=== PATIENT | male | born 1970 | race Caucasian/White ===

== ENCOUNTER 2016-09-27 19:16 | Emergency (ER) | payer BC, OTHER ==
[~2016-09-27] VITALS: Ht 182.9 cm; Wt 87.0 kg
[2016-09-27 19:23] VITALS: TEMP 36.8; Ht 182.9 cm; Wt 87.0 kg
[2016-09-27] MEDS ORDERED: LORA5TAB3 PO (19:32)
[2016-09-27] MEDS ORDERED: PRAV20TA PO (19:32)
[2016-09-27] MEDS ORDERED: ACYC1CAP8 PO (19:32)
[2016-09-27 20:30] LABS: URINE APPEARANCE CLOUDY (CLEAR); URINE BILIRUBIN NEG (NEG); URINE COLOR YELLOW; URINE NITRITE NEG (NEG); URINE SPECIFIC GRAVITY 1.015 (1.000-1.030); UROBILINOGEN NEG (NEG); ZZUR CULT IF INDIC CLEAN CATCH NO
[2016-09-27 20:35] LABS: MANUAL MICROSCOPIC REQUIRED? NO; REVIEW REQ? NO
--- NOTE | 2016-09-27 20:35 | DIAGNOSTIC IMAGING REPORT ---
CHEST ONE VIEW PORTABLE CLINICAL HISTORY: Weakness COMPARISON STUDY: No previous studies for comparison. FINDINGS: A ventriculoperitoneal shunt catheter is noted. Cardiac size is normal. Mediastinal contours are normal. There is no evidence of pulmonary edema. No consolidation is identified. There is no pneumothorax or pleural effusion. IMPRESSION: No acute cardiopulmonary findings. Electronically signed by: Jacek Banks M.D. 09/27/2016 8:34 PM Dictated Date/Time: 09/27/2016 8:34 PM
[2016-09-27 21:00] LABS: BASO % 0.5 %; BASO ABS # 0.03 K/uL (0-0.2); COMPLETE YES; EOS % 2.1 %; HEMATOCRIT 39.6 % (42-52); IG% 0.2 %; LYMPH % 38.8 %; LYMPH ABS # 2.17 K/uL (1.2-3.4); MEAN CELL VOLUME 89.8 fL (80-100); MEAN CORPUSCULAR HEMOGLOBIN 31.1 pg (25-34); MEAN CORPUSCULAR HGB CONC 34.6 g/dl (32-36); MEAN PLATELET VOLUME 9.6 fL (7.4-10.4); MONO % 11.6 %; NEUT % 46.8 %; PLATELET COUNT 268 K/uL (130-400); RED BLOOD COUNT 4.41 M/uL (4.7-6.1); WHITE BLOOD COUNT 5.59 K/uL (4.8-10.8)
[2016-09-27 21:09] LABS: BUN/CREATININE RATIO 14.6 (10-20); CALCIUM 8.3 mg/dl (8.5-10.1); CREATININE 0.8 mg/dl (0.60-1.40); POTASSIUM 3.8 mmol/L (3.5-5.1)
--- NOTE | 2016-09-27 21:14 | EMERGENCY ROOM VISIT NOTE ---
History Report prepared by Kirby: [facility] Under the Supervision of: Dr. Esteban Valverde D.O. First contact with patient: 20:57 Chief Complaint: WEAKNESS Stated Complaint: OFF BALANCE,WEAKNESS Nursing Triage Summary: c/o just feeling " off today." hx of hydrocephalus with shunt placement in 2000. denies celis. pt ambulatory in room without difficulty. just moved here from [place]. History of Present Illness The patient is a 46 year old male who presents to the Emergency Room with complaints of persistent illness that started today. The patient notes that he was walking up the stairs when he had to put his hands down to help him the rest of the way up. He also complains of left sided weakness. The patient notes that he has a CITY DRIVER shunt from 2000. He gets it checked regularly and has no history of problems with it. The patient presented to his PCP and a neurosurgeon a few weeks ago because he was having ringing in his ears and neck stiffness. The patient had his stunt checked and they said it looked fine at the time. He denies fevers or any changes in his speech at this time. Source of History: patient Onset: today Position: other (global) Timing: other (persistent) Associated Symptoms: + neck pain (stiffness), + weakness (left-sided ), No fevers Note: Other associated symptoms: difficulty walking up stairs, ringing in his ears Denies: changes in his speech Review of Systems See HPI for pertinent positives & negatives. A total of 10 systems reviewed and were otherwise negative. Past Medical & Surgical Surgical Problems: (1) S/P CITY DRIVER shunt Family History No pertinent family history Social History Smoking Status: Current Every Day Smoker Marital Status: Housing Status: lives with family Occupation Status: employed Current/Historical Medications Scheduled Acyclovir (Zovirax), 200 MG PO DAILY Loratadine & Pseudoephedrine (Claritin-D 12 Hour), 1 TAB PO BID Pravastatin (Pravachol ), 20 MG PO DAILY Allergies Coded Allergies: No Known Allergies (Unverified , 09/27/16) Physical Exam Vital Signs Date Time Temp Pulse Resp B/P Pulse Ox O2 Delivery O2 Flow Rate FiO2 09/27/16 22:49 78 18 146/98 98 09/27/16 22:47 78 18 146/98 98 Room Air 09/27/16 21:55 66 09/27/16 21:53 67 18 130/98 99 Room Air 09/27/16 21:34 72 18 125/81 98 Room Air 09/27/16 20:34 74 18 118/72 96 Room Air 09/27/16 19:23 36.8 92 18 141/87 97 Room Air Physical Exam GENERAL: Patient is awake alert non-anxious appearing and comfortable. EYES: The conjunctivae are clear. The pupils are round and reactive. EARS, NOSE, MOUTH AND THROAT: The nose is without any evidence of any deformity. Mucous membranes are moist tongue is midline NECK: The neck is nontender and supple. RESPIRATORY: Normal respiratory effort is noted there is no evidence of wheezing rhonchi or rales CARDIOVASCULAR: Regular rate and rhythm noted there no murmurs rubs or gallops normal S1 normal S2 GASTROINTESTINAL: The abdomen is soft. Bowel sounds are present in all quadrants. Abdomen is nontender MUSCULOSKELETAL/EXTREMITIES: There is no evidence of gross deformity full range of motion is noted in the hips and shoulders SKIN: There is no obvious evidence of any rash. There are no petechiae, pallor or cyanosis noted. NEUROLOGIC: Patient is awake alert and oriented x3. speech was pressured but understandable. There was a slight left facial droop with forehead sparing noted. Compliance Monitor strength was asymmetric with right trim mechanic stronger than left. Both lower extremities were symmetric. Medical Decision & Procedures ER Provider Diagnostic Interpretation: Radiology results as stated below per my review and radiologist interpretation: CHEST ONE VIEW PORTABLE CLINICAL HISTORY: Weakness COMPARISON STUDY: No previous studies for comparison. FINDINGS: A ventriculoperitoneal shunt catheter is noted. Cardiac size is normal. Mediastinal contours are normal. There is no evidence of pulmonary edema. No consolidation is identified. There is no pneumothorax or pleural effusion. IMPRESSION: No acute cardiopulmonary findings. Electronically signed by: Jacek Banks M.D. 09/27/2016 8:34 PM Dictated Date/Time: 09/27/2016 8:[address] OF THE HEAD WITHOUT CONTRAST CLINICAL HISTORY: Left-sided weakness. Mild headache. COMPARISON STUDY: Head CT August 14, 2016. CT DOSE: 884.08 mGy.cm TECHNIQUE: Helical axial images of the head were obtained without IV contrast. Automated exposure control was utilized for the study. FINDINGS: There has been interval development of large intermediate attenuation bilateral subdural hematomas since exam of August 14, 2016. There are areas of increased attenuation within the hematomas consistent with acute hemorrhage. The right subdural hematoma measures 2.7 cm in thickness while the left measures 2.2 cm. Note is made of 5 mm of leftward midline shift. A right posterior parietal approach ventriculostomy catheter is in place. The ventricles have markedly decreased in size since exam of August 14, 2016 and are now slit-like. The basilar cisterns are patent. There is no evidence of uncal herniation at this time. There are no CT findings to suggest acute dural sinus thrombosis or acute territorial infarct. There is no calvarial fracture. There is mild mucosal thickening of the sinuses. A small amount of fluid within the left mastoid air cells is noted. IMPRESSION: 1. Interval development of large mixed attenuation bilateral subdural hematomas since CT of August 14, 2016. Significant associated mass effect with sulcal effacement, 5 mm of leftward midline shift and compression of the lateral ventricles. Areas of increased attenuation within the hematomas represent acute hemorrhage. Urgent neurosurgical consultation is recommended. These hematomas could be posttraumatic or related to overshunting. Discussed with Dr. Valverde at time of dictation. 2. Marked interval decrease in size of the lateral ventricles since exam of August 14, 2016, now slit-like, with right posterior parietal ventriculostomy catheter in place. Electronically signed by: Jacek Banks M.D. 09/27/2016 10:03 PM Dictated Date/Time: 09/27/2016 9:52 PM Laboratory Results 09/27/16 20:30 Red Blood Count 4.41, Mean Corpuscular Volume 89.8, Mean Corpuscular Hemoglobin 31.1, Mean Corpuscular Hemoglobin Concent 34.6, Mean Platelet Volume 9.6, Neutrophils (%) (Auto) 46.8, Lymphocytes (%) (Auto) 38.8, Monocytes (%) (Auto) 11.6, Eosinophils (%) (Auto) 2.1, Basophils (%) (Auto) 0.5, Neutrophils # (Auto ) 2.61, Lymphocytes # (Auto) 2.17, Monocytes # (Auto) 0.65, Eosinophils # (Auto ) 0.12, Basophils # (Auto) 0.03 09/27/16 20:30 Test 09/27/16 19:30 09/27/16 20:30 Urine Color YELLOW Urine Appearance CLOUDY (CLEAR) Urine pH 7.0 (4.5-7.5) Urine Specific [place] 1.015 (1.000-1.030) Urine Protein NEG (NEG) Urine Glucose (UA) NEG (NEG) Urine Ketones NEG (NEG) Urine Occult Blood NEG (NEG) Urine Nitrite NEG (NEG) Urine Bilirubin NEG (NEG) Urine Urobilinogen NEG (NEG) Urine Leukocyte Esterase NEG (NEG) Urine WBC (Auto) 1-5 /hpf (0-5) Urine RBC (Auto) 0-4 /hpf (0-4) Urine Hyaline Casts (Auto) 1-5 /lpf (0-5) Urine Epithelial Cells (Auto) 5-10 /lpf (0-5) Urine Bacteria (Auto) NEG (NEG) White Blood Count 5.59 K/uL (4.8-10.8) Red Blood Count 4.41 M/uL (4.7-6.1) Hemoglobin 13.7 g/dL (14.0-18.0) Hematocrit 39.6 % (42-52) Mean Corpuscular Volume 89.8 fL (80-100) Mean Corpuscular Hemoglobin 31.1 pg (25-34) Mean Corpuscular Hemoglobin Concent 34.6 g/dl (32-36) Platelet Count 268 K/uL (130-400) Mean Platelet Volume 9.6 fL (7.4-10.4) Neutrophils (%) (Auto) 46.8 % Lymphocytes (%) (Auto) 38.8 % Monocytes (%) (Auto) 11.6 % Eosinophils (%) (Auto) 2.1 % Basophils (%) (Auto) 0.5 % Neutrophils # (Auto) 2.61 K/uL (1.4-6.5) Lymphocytes # (Auto) 2.17 K/uL (1.2-3.4) Monocytes # (Auto) 0.65 K/uL (0.11-0.59) Eosinophils # (Auto) 0.12 K/uL (0-0.5) Basophils # (Auto) 0.03 K/uL (0-0.2) RDW Standard Deviation 42.7 fL (36.4-46.3) RDW Coefficient of Variation 13.0 % (11.5-14.5) Immature Granulocyte % (Auto) 0.2 % Immature Granulocyte # (Auto) 0.01 K/uL (0.00-0.02) Anion Gap 4.0 mmol/L (3-11) Est Creatinine Clear Calc Drug Dose 126.7 ml/min Estimated GFR () 124.2 Estimated GFR (Non- 107.1 BUN/Creatinine Ratio 14.6 (10-20) Calcium Level 8.3 mg/dl (8.5-10.1) Total Bilirubin 0.3 mg/dl (0.2-1) Aspartate Amino Transf (AST/SGOT) 22 U/L (15-37) Alanine Aminotransferase (ALT/SGPT) 38 U/L (12-78) Alkaline Phosphatase 67 U/L (45-117) Total Creatine Kinase 117 U/L (39-308) Creatine Kinase MB 1.2 ng/ml (0.5-3.6) Creatine Kinase MB Ratio 1.0 (0-3.0) Troponin I < 0.015 ng/ml (0-0.045) Total Protein 6.2 gm/dl (6.4-8.2) Albumin 3.7 gm/dl (3.4-5.0) Globulin 2.5 gm/dl (2.5-4.0) Albumin/Globulin Ratio 1.5 (0.9-2) Thyroid Stimulating Hormone (TSH) 1.780 uIu/ml (0.300-4.500) Laboratory results per my review. ECG Indication: other Rate (beats per minute): 75 Rhythm: normal sinus Findings: no ectopy, other (no ST segment abnormality) ED Course 2103: The patient was evaluated in room C9. A complete history and physical examination were performed. 2129: At this time, I reevaluated the patient and discussed his test results with him. 2201: At this time, I discussed the patient's case with Dr. Nichols - Neurosurgery [facility] and he accepted the patient for transfer down to [facility]. Medical Decision Prior records/ancillary studies reviewed and summarized above. Nursing notes reviewed. Differential diagnosis: Etiologies such as metabolic, infection, hypo/hyperglycemia, electrolyte abnormalities, cardiac sources, intracerebral event, toxicologic, neurologic, as well as others were entertained. The patient is a 46-year-old male who has a history of a CITY DRIVER shunt which was placed many years ago. The patient has had a recent fall appointment for this CITY DRIVER shunt. He's been having vague symptoms which included weakness mild speech problems as well as weakness in his left upper extremity and mild headache. On physical exam the patient had some degree of dysarthria. He also had a left facial droop as well as weakness his left trim mechanic. The patient's CAT scan showed signs of bilateral subdural hematomas which looked mostly chronic with some acute bleeding noted on the left subdural hematoma. I discussed the patient's laboratory and radiographic studies with him. I also discussed his case with the on-call neurosurgical service at [facility]. They've agreed to accept the patient in transfer for further management and disposition. The patient was reevaluated multiple times. His blood pressure remained stable in the emergency department. Consults Time Called: [phone] Consulting Physician: Dr. Nichols - Neurosurgery [facility] Returned Call: [phone] At this time, I discussed the patient's case with Dr. Nichols and he accepted the patient for transfer down to [facility]. Impression Primary Impression: Acute on chronic intracranial subdural hematoma Additional Impression: Chronic subdural hematoma Scribe Attestation The scribe's documentation has been prepared under my direction and personally reviewed by me in its entirety. I confirm that the note above accurately reflects all work, treatment, procedures, and medical decision making performed by me. Departure Information Dispostion Transfer Acute Care Facility ([facility]) Referrals Randolph Tam MD (PCP) Problem Qualifiers
[2016-09-27 21:19] LABS: ALB/GLOB RATIO 1.5 (0.9-2); THYROID STIMULATING HORMONE 1.78 uIu/ml (0.300-4.500)
--- NOTE | 2016-09-27 22:05 | DIAGNOSTIC IMAGING REPORT ---
CT OF THE HEAD WITHOUT CONTRAST CLINICAL HISTORY: Left-sided weakness. Mild headache. COMPARISON STUDY: Head CT August 14, 2016. CT DOSE: 884.08 mGy.cm TECHNIQUE: Helical axial images of the head were obtained without IV contrast. Automated exposure control was utilized for the study. FINDINGS: There has been interval development of large intermediate attenuation bilateral subdural hematomas since exam of August 14, 2016. There are areas of increased attenuation within the hematomas consistent with acute hemorrhage. The right subdural hematoma measures 2.7 cm in thickness while the left measures 2.2 cm. Note is made of 5 mm of leftward midline shift. A right posterior parietal approach ventriculostomy catheter is in place. The ventricles have markedly decreased in size since exam of August 14, 2016 and are now slit-like. The basilar cisterns are patent. There is no evidence of uncal herniation at this time. There are no CT findings to suggest acute dural sinus thrombosis or acute territorial infarct. There is no calvarial fracture. There is mild mucosal thickening of the sinuses. A small amount of fluid within the left mastoid air cells is noted. IMPRESSION: 1. Interval development of large mixed attenuation bilateral subdural hematomas since CT of August 14, 2016. Significant associated mass effect with sulcal effacement, 5 mm of leftward midline shift and compression of the lateral ventricles. Areas of increased attenuation within the hematomas represent acute hemorrhage. Urgent neurosurgical consultation is recommended. These hematomas could be posttraumatic or related to overshunting. Discussed with Dr. Valverde at time of dictation. 2. Marked interval decrease in size of the lateral ventricles since exam of August 14, 2016, now slit-like, with right posterior parietal ventriculostomy catheter in place. Electronically signed by: Jacek Banks M.D. 09/27/2016 10:03 PM Dictated Date/Time: 09/27/2016 9:52 PM
[2016-09-27 22:49] VITALS: BP 146/98; PULSE 78; O2SAT 98
== END 2016-09-27 23:00 | disposition short-term general hospital (02) ==
LOC: C.EDB 19:20 → C.EDC 23:00
DX: I62.00 Nontraumatic subdural hemorrhage, unspecified (principal); Z98.890 Other specified postprocedural states

== ENCOUNTER 2017-12-03 16:02 | Emergency (ER) | payer OTHER ==
[~2017-12-03] VITALS: Ht 182.9 cm; Wt 86.8 kg
[~2017-12-03 16:02] MED LIST changes: -LORA-749 PO; -MULT-506 PO; -OMEG10007 PO; -PRAV20TA PO; -ZVR400 PO
[2017-12-03 16:07] VITALS: TEMP 36.5; Ht 182.9 cm; Wt 86.8 kg
--- NOTE | 2017-12-03 17:22 | EMERGENCY ROOM VISIT NOTE ---
History Report prepared by Kirby: Ollie Mahan Under the Supervision of: Lamont IglesiasO. First contact with patient: 16:25 Chief Complaint: HEADACHE Stated Complaint: REF BY History of Present Illness The patient is a 47 year old male who presents to the Emergency Room with evaluation for an episodic abnormal head CT scan RN HEMODIALYSIS CHARGE. The patient has a history of hydrocephalus in 2000. He notes that he had two brain surgeries at [facility] in 2016 due to bilateral subdural hematomas after another head injury. He has a history of ventriculoperitoneal shunt. He reports that he had a follow up CT scan this morning and then was advised to come to the ED for further evaluation. He was told that his ventricles are enlarged. He states that he is experiencing slight balance issues, mild nausea, frequent urination, and mild memory loss. He states these symptoms are similar to previous symptoms he experienced related to his hydrocephalus. Source of History: patient Onset: RN HEMODIALYSIS CHARGE Position: head Quality: other (abnormal CT scan) Timing: other (episodic ) Associated Symptoms: + nausea, + urinary symptoms (frequent urination) Note: Notes balance issues and memory loss. Review of Systems See HPI for pertinent positives & negatives. A total of 10 systems reviewed and were otherwise negative. Past Medical & Surgical Surgical Problems: (1) S/P BARK TANNER shunt Family History No pertinent family history Social History Smoking Status: Current Every Day Smoker Marital Status: Housing Status: lives with family Occupation Status: employed Current/Historical Medications Scheduled Acyclovir (Acyclovir), 400 MG PO DAILY Fish Oil ([place]-3), 1 CAP PO DAILY Loratadine & Pseudoephedrine (Claritin-D 24 Hour), 1 TAB PO DAILY Multivitamin (Multivitamin), 1 TAB PO DAILY Pravastatin (Pravachol ), 20 MG PO HS Allergies Coded Allergies: No Known Allergies (Unverified , 09/27/16) Physical Exam Vital Signs Date Time Temp Pulse Resp B/P (MAP) Pulse Ox O2 Delivery O2 Flow Rate FiO2 12/03/17 17:31 73 18 110/78 98 Room Air 12/03/17 16:07 36.5 77 16 137/85 97 Room Air Physical Exam VITAL SIGNS: were reviewed as above. GENERAL:Non-toxic in appearance. SKIN: Warm dry and pink. HEAD: Normocephalic and atraumatic. OROPHARYNX: Is clear and moist NECK: Supple without lymphadenopathy or meningismus. LUNGS: clear. HEART: Regular rate and rhythm. ABDOMEN: Soft and nontender. EXTREMITIES: Warm and well perfused. NEUROLOGICALLY: Awake alert and oriented without focal deficit. Cranial nerves 2 -12 are intact. There is no pronator drift. Cerebellar testing is within normal limits. There is no nystagmus. There is no facial droop. Speech is clear. Vision is grossly normal. MUSCULOSKELETAL: Good muscle tone. No evidence of trauma. Medical Decision & Procedures ED Course 163: Previous medical records were reviewed. The patient was evaluated in room A12B. A complete history and physical examination was performed. 1655: I spoke with Dr. Alcantara [facility] neurosurgeon. We discussed the patient's case. The patient can follow up with Dr. Moralez, hydrocephalus specialist. 1715: I reassessed the patient at this time. I discussed the results and treatment plan with the patient. I answered all pertaining questions that he had. He expressed understanding and verbalized agreement. The patient will be discharged home. Medical Decision Differential includes: Acute intracranial bleed, trauma, meningitis, encephalitis, increased intracranial pressure, mass or mass effect, facial or dental infection, temporal arteritis, CVA, TIA, acute hypertensive emergency, sinusitis, and carbon monoxide exposure. This is a 47-year-old male who presents to the ED with a chief complaint of hydrocephalus. The patient had an outpatient routine CT scan of the brain today that revealed hydrocephalus. It was significantly changed from a previous CT scan that was done here when the patient had subdural hematomas. The patient reports that he has had history of hydrocephalus since 2000. The shunt was ligated after having the subdural hematomas. The patient's works at [employer] and he has at an insurance. He can no longer follow up with [facility] [facility]. The patient was provided with contact information for the hydrocephalus specialist at [facility], Dr. Moralez. I did speak with Dr. Alcantara neurosurgeon from [facility]. Based on the fact that the patient is asymptomatic and has not had any sudden changes in his symptoms, outpatient follow-up was recommended. Medication Reconcilliation Current Medication List: was personally reviewed by me Blood Pressure Screening Patient's blood pressure: Elevated blood pressure Blood pressure disposition: Elevated BP felt to be situational Consults Time Called: 1650 Consulting Physician: Jazmin Colladohey neurosurgeon Returned Call: [phone] Alcantara [place] [facility] neurosurgeon. We discussed the patient's case. The patient can follow up with Dr. Moralez, hydrocephalus specialist. Impression Primary Impression: Hydrocephalus Scribe Attestation The scribe's documentation has been prepared under my direction and personally reviewed by me in its entirety. I confirm that the note above accurately reflects all work, treatment, procedures, and medical decision making performed by me. Departure Information Dispostion Home / Self-Care Referrals Randolph Tam MD (PCP) Forms HOME CARE DOCUMENTATION FORM, IMPORTANT VISIT INFORMATION Patient Instructions My [facility] Additional Instructions Take the CD were given today to your appointment at [facility] neurosurgery clinic with Dr. Moralez. Call Wednesday for appointment. [place] [facility] Neuro[facility] office: [phone] See if you can obtain the MRI on CD from [facility] from December. Return for any significant worsening or sudden changes.
[2017-12-03] MEDS ORDERED: LORA-749 PO (17:24)
[2017-12-03] MEDS ORDERED: OMEG10007 PO (17:24)
[2017-12-03] MEDS ORDERED: ZVR400 PO (17:24)
[2017-12-03] MEDS ORDERED: MULT-506 PO (17:24)
[2017-12-03 17:31] VITALS: BP 110/78; PULSE 73; O2SAT 98
[2017-12-03] MEDS ORDERED: PRAV20TA PO (19:32)
== END 2017-12-03 17:33 | disposition home or self-care (01) ==
LOC: C.EDB 16:03 → C.EDA 17:33
DX: G91.9 Hydrocephalus, unspecified (principal); R03.0 Elevated blood-pressure reading, without diagnosis of hypertension; F17.200 Nicotine dependence, unspecified, uncomplicated; Z87.820 Personal history of traumatic brain injury; Z98.2 Presence of cerebrospinal fluid drainage device; Z79.899 Other long term (current) drug therapy

== ENCOUNTER → 2017-12-03 | Outpatient (CLI) | payer OTHER ==
[~2017-12-03] MED LIST: ACYC-57 PO; LORA-749 PO; LORA5TAB3 PO; MULT-506 PO; OMEG10007 PO; PRAV20TA PO; ZVR400 PO
--- NOTE | 2017-12-03 14:59 | DIAGNOSTIC IMAGING REPORT ---
CT SCAN OF THE BRAIN WITHOUT IV CONTRAST CLINICAL HISTORY: Headache. COMPARISON STUDY: CT of the brain dated 09/27/2016. TECHNIQUE: Unenhanced axial CT scan of the brain is performed from the vertex to the skull base. A dose lowering technique was utilized adhering to the principles of ALARA. CT DOSE: 729.78 mGycm FINDINGS: Brain parenchyma: There is a right posterior parietal approach ventriculostomy catheter. The tip of the catheter terminates in the frontal horn of the right lateral ventricle. There is dilatation of the lateral ventricles and the third ventricle, which is significantly increased from 09/27/2016. The biventricular caliber measures up to 5.6 cm. The cortical sulci are normal in configuration. There is no hemorrhage, mass effect, or evidence of acute territorial ischemia by CT criteria. Cantor-white matter is preserved. There is no transependymal flow of CSF. No extra-axial fluid collection is seen. Ventricles, sulci, cisterns: See above. Intracranial vasculature: The visualized intracranial vasculature at the skull base is normal in appearance. Calvarium: There is a right posterior parietal rich hole, as well as evidence of bilateral craniotomy. Sinuses and mastoids: The visualized paranasal sinuses are clear. The mastoid air cells are well pneumatized. Orbits: The bony orbits are grossly intact. IMPRESSION: 1. There is no hemorrhage, mass effect, or evidence of acute territorial ischemia by CT criteria. 2. There is a right parietal approach ventriculostomy catheter as above. There is enlargement of the ventricles, which has significantly increased from 09/27/2016 and suggests shunt dysfunction. Electronically signed by: Rubén Montaño M.D. 12/03/2017 2:58 PM Dictated Date/Time: 12/03/2017 2:55 PM
== END | disposition home or self-care (01) ==
LOC: C.CTS 14:43
PROVIDERS: ATTEND Family Medicine
DX: G93.89 Other specified disorders of brain (principal); R51 Headache; R11.0 Nausea; Z98.2 Presence of cerebrospinal fluid drainage device

== ENCOUNTER → 2017-12-20 | Outpatient (CLI) | payer OTHER ==
[~2017-12-20] MED LIST changes: -ACYC-57 PO; +LORA-749 PO; -LORA5TAB3 PO; +MULT-506 PO; +OMEG10007 PO; +PRAV20TA PO; +ZVR400 PO
== END | disposition home or self-care (01) ==
LOC: C.LAB 08:46
PROVIDERS: ATTEND Family Medicine
DX: Z13.220 Encounter for screening for lipoid disorders (principal); Z13.1 Encounter for screening for diabetes mellitus; R53.83 Other fatigue